=== PATIENT | female | born 1965 | race Caucasian/White ===

== ENCOUNTER → 2024-12-05 10:55 | Outpatient (BNVA) | payer MEDICAID, SELFPAY | PROVIDERS: Visit Provider Podiatrist Foot & Ankle Surgery | DX: I73.9 Peripheral vascular disease, unspecified (principal); L60.3 Nail dystrophy; L85.1 Acquired keratosis [keratoderma] palmaris et plantaris; M79.671 Pain in right foot; M79.672 Pain in left foot; M25.572 Pain in left ankle and joints of left foot; M19.072 Primary osteoarthritis, left ankle and foot | CPT/HCPCS: 11721; 17110; 73610; 73630; 99204 ==

== ENCOUNTER → 2025-02-06 10:07 | Outpatient (BNVA) | payer MEDICARE, MEDICAID, SELFPAY | PROVIDERS: Visit Provider Podiatrist Foot & Ankle Surgery | DX: I73.9 Peripheral vascular disease, unspecified (principal); L60.3 Nail dystrophy; L85.1 Acquired keratosis [keratoderma] palmaris et plantaris | CPT/HCPCS: 11721; 17110 ==